=== PATIENT | female | born 1950 | race Caucasian/White ===

== ENCOUNTER 2020-07-19 18:38 | Emergency (ER) | payer MEDICARE, MEDICAID ==
[~2020-07-19] VITALS: Ht 162.6 cm; Wt 104.0 kg
[~2020-07-19 18:38] MED LIST: ASCO-100 PO; HYDR-4353 PO; MULT-1179 PO; OMEP40CA13 PO; POTA99TA25 PO; VITA100C24 PO
--- NOTE | 2020-07-19 19:19 | NUR ---
Patient to CT
[2020-07-19 20:05] VITALS: BP 123/75
== END 2020-07-19 20:10 | disposition home or self-care (01) ==
LOC: ER 18:38
DX: S16.1XXA Strain of muscle, fascia and tendon at neck level, initial encounter (principal); S09.90XA Unspecified injury of head, initial encounter; M25.511 Pain in right shoulder; J44.9 Chronic obstructive pulmonary disease, unspecified; Z72.89 Other problems related to lifestyle; Z98.891 History of uterine scar from previous surgery; Z98.890 Other specified postprocedural states; Z79.899 Other long term (current) drug therapy; W08.XXXA Fall from other furniture, initial encounter; Z91.81 History of falling; Y93.89 Activity, other specified; Y92.89 Other specified places as the place of occurrence of the external cause; Y99.8 Other external cause status
CPT/HCPCS: 70450; 72125; 73030; 99285